=== PATIENT | female | born 1995 | race Caucasian/White ===

== ENCOUNTER → 2021-05-28 | Outpatient (CLI) | payer MEDICAID ==
[2021-05-28 11:14] LABS: Cholesterol 130 mg/dL (< 200); HDL Cholesterol 33 mg/dL (40-59); LDL Cholesterol 85 mg/dL (< 100); Triglycerides 75 mg/dL (< 150)
== END | disposition home or self-care (01) ==
LOC: LAB 10:08
PROVIDERS: ATTEND Internal Medicine
DX: I10 Essential (primary) hypertension (principal); E55.9 Vitamin D deficiency, unspecified; R73.03 Prediabetes
CPT/HCPCS: 36415; 80061; 82306; 83036

== ENCOUNTER → 2021-10-27 | Outpatient (CLI) | payer MEDICAID | END | disposition home or self-care (01) | LOC: XY 08:22 | PROVIDERS: ATTEND Internal Medicine | DX: I07.1 Rheumatic tricuspid insufficiency (principal); I05.0 Rheumatic mitral stenosis; I35.0 Nonrheumatic aortic (valve) stenosis; I48.0 Paroxysmal atrial fibrillation; J90 Pleural effusion, not elsewhere classified | CPT/HCPCS: 93306 ==

== ENCOUNTER → 2021-11-06 | Outpatient (CLI) | payer MEDICAID | END | disposition home or self-care (01) | LOC: XY 08:03 | PROVIDERS: ATTEND Internal Medicine | DX: I48.0 Paroxysmal atrial fibrillation (principal); R07.9 Chest pain, unspecified; R00.2 Palpitations; R06.02 Shortness of breath | CPT/HCPCS: 78452; 93017; A9500 ==